=== PATIENT | male | born 1995 | race Caucasian/White ===

== ENCOUNTER 2016-06-29 18:48 | Emergency (ER) | payer BC, MEDICAID ==
[~2016-06-29] VITALS: Ht 177.8 cm; Wt 99.8 kg
[2016-06-29 20:53] LABS: BASOPHILS # (AUTO) 0.2 /CMM (0.0-0.2); BASOPHILS % (AUTO) 1.6 % (0.0-2.0); DIFF TOTAL % 100 %; EOSINOPHILS % (AUTO) 0.2 % (0.0-6.0); HEMATOCRIT 43 % (39-51); HEMOGLOBIN 14.1 g/dL (13.5-17.5); LYMPHOCYTES % (AUTO) 7.7 % (20.0-44.0); MEAN CORPUSCULAR HEMOGLOBIN 24 PG (26.0-33.0); MEAN CORPUSCULAR HGB CONC 33 g/dl (31.0-36.0); MEAN CORPUSCULAR VOLUME 73 fL (80-96); MONOCYTES # (AUTO) 0.7 /CMM (0.1-1.30); MONOCYTES % (AUTO) 5.1 % (2.0-12.0); NEUTROPHILS # (AUTO) 11.6 /CMM (1.8-8.9); NEUTROPHILS % (AUTO) 85.4 % (43.0-81.0); PLATELET COUNT (AUTO) 306 /CMM (150-450); RED BLOOD CELL COUNT(AUTO) 5.84 MIL/uL (4.5-6.0); WHITE BLOOD COUNT (AUTO) 13.5 K/uL (4.3-11.0)
[2016-06-29] MEDS ORDERED: IV NS 0.9% 1,000 ML BAG IV ONE (21:00)
[2016-06-29] MEDS ORDERED: KETOROLAC TROMETHAMINE INJ 30 MG/ML VIAL IV ONE (21:00)
[2016-06-29 21:06] LABS: KETONES,URINE Trace (NEGATIVE); LEUKOCYTE ESTERASE ,URINE Negative (NEGATIVE)
[2016-06-29 21:09] LABS: ALBUMIN 3.7 g/dL (3.4-5.0); BILIRUBIN,DIRECT 0.1 mg/dL (0.0-0.2); BILIRUBIN,TOTAL 0.5 mg/dL (0.2-1.0); CREATININE 1.1 mg/dL (0.6-1.3); INDIRECT BILIRUBIN 0.4 mg/dL (0.0-1.1); POTASSIUM 4.1 mmol/L (3.5-5.1); TOTAL PROTEIN, SERUM 7.4 g/dL (6.4-8.2)
[2016-06-29] MEDS ORDERED: IV SET PRIMARY 1 EA INFUS.SET MC ONE (21:11)
[2016-06-29] MEDS ORDERED: IV NS 0.9% 1,000 ML ONE (21:11)
[2016-06-29] MEDS ORDERED: KETOROLAC TROMETHAMINE INJ 30 MG/ML VIAL ONE (21:11)
[2016-06-29 21:19] LABS: ADD UA MICROSCOPIC YES
[2016-06-29 21:42] LABS: ADD URINE CULTURE NO; MUCUS,URINE Many /LPF (None Seen); RBC,URINE 2-3/HPF /HPF (0-2)
[2016-06-29 22:14] VITALS: BP 120/53
== END 2016-06-29 22:15 | disposition home or self-care (01) ==
LOC: ER 18:50
DX: R10.11 Right upper quadrant pain (principal); F17.200 Nicotine dependence, unspecified, uncomplicated
CPT/HCPCS: 36415; 74176; 80048; 80076; 81001; 83690; 85025; 96361; 96374; 99285; A4606; J1885; J7030; Z7610; 81000-TC

== ENCOUNTER 2021-05-19 21:05 | Emergency (ER) | payer SELFPAY ==
[~2021-05-19] VITALS: Ht 177.8 cm; Wt 95.3 kg
--- NOTE | 2021-05-19 21:30 | NUR ---
PT CAME IN C/O RIGHT SIDED CHEST PAIN AND VOMITING ,STARTED THIS MORNING PER PT. PT IS A/OX4.PT IS ON MONITOR.
[2021-05-19] MEDS ORDERED: ONDANSETRON HCL/PF 4 MG/2 ML VIAL ONE (22:21)
[2021-05-19] MEDS ORDERED: MORPHINE SULFATE INJ 2 MG/ML DISP.SYRIN ONE (22:21)
[2021-05-19] MEDS ORDERED: MORPHINE SULFATE INJ 2 MG/ML DISP.SYRIN IV ONE (22:30)
[2021-05-19] MEDS ORDERED: ONDANSETRON HCL/PF 4 MG/2 ML VIAL IVP ONE (22:30)
[2021-05-19] MEDS ORDERED: IV LR 1000 ML 1,000 ML IV ONE (22:30)
[2021-05-19 22:35] LABS: BILIRUBIN,URINE Negative (NEGATIVE); COLOR,URINE YELLOW (YELLOW); LEUKOCYTE ESTERASE ,URINE Negative (NEGATIVE); NITRITE, URINE Negative (NEGATIVE); PH,URINE 5.5 (5.0-8.0); PROTEIN,URINE Negative (NEGATIVE); UGLUCOSE Negative (NEGATIVE); UROBILINOGEN,URINE 0.2 EU/dL (0.2)
[2021-05-19] MEDS ORDERED: IOHEXOL-300 100 ML VIAL IV ONE (22:38)
[2021-05-19] MEDS ORDERED: CT SWABBABLE VALVE TRANS SET 1 EA INFUS.SET MC ONE (22:38)
[2021-05-19] MEDS ORDERED: IV NS 0.9% 250 ML IV ONE (22:38)
[2021-05-19 22:40] LABS: BACTERIA,URINE Rare /HPF (None Seen); SQUAMOUS EPITHELIAL CELL,UR Few /HPF (None Seen); WBC,URINE NONE SEEN /HPF (0-3)
[2021-05-19 22:49] LABS: BASOPHILS % (AUTO) 0.3 % (0.0-2.0); EOSINOPHILS % (AUTO) 0.5 % (0.0-6.0); HEMATOCRIT 42 % (39-51); HEMOGLOBIN 13.8 g/dL (13.5-17.5); LYMPHOCYTES # (AUTO) 1.3 K/uL (0.8-4.8); LYMPHOCYTES % (AUTO) 8.5 % (20.0-44.0); MEAN CORPUSCULAR HGB CONC 32 g/dl (31.0-36.0); MEAN CORPUSCULAR VOLUME 74 fL (80-96); MONOCYTES # (AUTO) 0.8 K/uL (0.1-1.30); MONOCYTES % (AUTO) 5.1 % (2.0-12.0); NEUTROPHILS # (AUTO) 12.6 K/uL (1.8-8.9); NEUTROPHILS % (AUTO) 85.6 % (43.0-81.0); PLATELET COUNT (AUTO) 379 K/uL (150-450); RED BLOOD CELL COUNT(AUTO) 5.72 MIL/uL (4.5-6.0); WHITE BLOOD COUNT (AUTO) 14.7 K/uL (4.3-11.0)
[2021-05-19 23:20] LABS: ALANINE AMINOTRANSFERASE 15 U/L (12-78); ALBUMIN 3.5 g/dL (3.4-5.0); ALKALINE PHOSPHATASE 76 U/L (46-116); ASPARTATE AMINOTRANSFERASE 12 U/L (15-37); BILIRUBIN,DIRECT 0.1 mg/dL (0.0-0.2); BILIRUBIN,TOTAL 0.3 mg/dL (0.2-1.0); CALCIUM, SERUM 8.8 mg/dL (8.5-10.1); CARBON DIOXIDE 29 mmol/L (21-32); CHLORIDE 100 mmol/L (98-107); GLUCOSE 105 mg/dL (74-106); POTASSIUM 3.8 mmol/L (3.5-5.1); SODIUM SERUM 141 mmol/L (136-145); TOTAL PROTEIN, SERUM 7.5 g/dL (6.4-8.2); UREA NITROGEN, BLOOD 11 mg/dL (7-18)
[2021-05-20] MEDS ORDERED: ONDA4TAB5 PO (00:36)
--- NOTE | 2021-05-20 00:45 | NUR ---
Patient discharged to home in stable condition.RX, Written and verbal after care instructions given. Patient verbalizes understanding of instruction.IV removed. Catheter intact and site benign. Pressure and 4x4 applied to site. No bleeding noted.
[2021-05-20 00:46] VITALS: BP 119/86
== END 2021-05-20 00:47 | disposition home or self-care (01) ==
LOC: ER 21:07
DX: R10.11 Right upper quadrant pain (principal); R11.2 Nausea with vomiting, unspecified; F17.290 Nicotine dependence, other tobacco product, uncomplicated; Z79.899 Other long term (current) drug therapy
CPT/HCPCS: 36415; 71045; 74160; 76705; 80048; 80076; 81001; 83605; 83690; 84484; 85025; 87040 ×2; 93005; 96361; 96374; 96375; 99285; J2270; J2405; J7050; J7120; Q9967

== ENCOUNTER 2022-12-15 10:22 | Inpatient (IN) | payer MEDICAID ==
[~2022-12-15] VITALS: Ht 177.8 cm; Wt 99.8 kg
[~2022-12-15 10:22] MED LIST: ONDA4TAB5 PO
[2022-12-15 11:25] LABS: BASOPHILS % (AUTO) 0.4 % (0.0-2.0); EOSINOPHILS % (AUTO) 2.3 % (0.0-6.0); HEMATOCRIT 41 % (39-51); HEMOGLOBIN 13.2 g/dL (13.5-17.5); MEAN CORPUSCULAR HGB CONC 32 g/dl (31.0-36.0); MEAN CORPUSCULAR VOLUME 72 fL (80-96); MONOCYTES # (AUTO) 0.6 K/uL (0.1-1.30); MONOCYTES % (AUTO) 6.7 % (2.0-12.0); NEUTROPHILS # (AUTO) 6.5 K/uL (1.8-8.9); NEUTROPHILS % (AUTO) 69.6 % (43.0-81.0); PLATELET COUNT (AUTO) 375 K/uL (150-450); RED BLOOD CELL COUNT(AUTO) 5.74 MIL/uL (4.5-6.0); WHITE BLOOD COUNT (AUTO) 9.3 K/uL (4.3-11.0)
[2022-12-15 11:31] LABS: CALCIUM, SERUM 9.2 mg/dL (8.5-10.1); CREATININE 0.8 mg/dL (0.6-1.3); POTASSIUM 4.2 mmol/L (3.5-5.1)
[2022-12-15] MEDS ORDERED: IV NS 0.9% 250 ML IV ONE (12:53)
[2022-12-15] MEDS ORDERED: IOHEXOL-300 100 ML VIAL IV ONE (12:53)
[2022-12-15] MEDS ORDERED: HYDROCODONE/APAP 5/325MG TABLET PO PRN (16:30)
[2022-12-15] MEDS: SULFAMETHOXAZOLE/TRIMETHOPRIM 10 ML in IV D5W 250 ML IV SCH (18:00)
[2022-12-15 20:00] VITALS: BP 117/66; TEMP 98.4; O2SAT 97
[2022-12-15] MEDS ORDERED: ENOXAPARIN SODIUM 40 MG/0.4 ML DISP.SYRIN SQ SCH (21:00)
[2022-12-15] MEDS: TRAZODONE 50 MG TABLET PO PRN (22:34)
[2022-12-16] MEDS: SULFAMETHOXAZOLE/TRIMETHOPRIM 10 ML in IV D5W 250 ML IV SCH ×3 (01:41→17:03)
[2022-12-16 04:00] VITALS: BP 120/70; TEMP 98; O2SAT 96
[2022-12-16 06:17] LABS: BASOPHILS % (AUTO) 0.5 % (0.0-2.0); EOSINOPHILS % (AUTO) 2.9 % (0.0-6.0); HEMATOCRIT 40 % (39-51); HEMOGLOBIN 13.1 g/dL (13.5-17.5); LYMPHOCYTES # (AUTO) 2.3 K/uL (0.8-4.8); LYMPHOCYTES % (AUTO) 24.9 % (20.0-44.0); MEAN CORPUSCULAR HGB CONC 33 g/dl (31.0-36.0); MEAN CORPUSCULAR VOLUME 71 fL (80-96); MONOCYTES # (AUTO) 0.7 K/uL (0.1-1.30); MONOCYTES % (AUTO) 7.1 % (2.0-12.0); NEUTROPHILS # (AUTO) 5.9 K/uL (1.8-8.9); NEUTROPHILS % (AUTO) 64.6 % (43.0-81.0); PLATELET COUNT (AUTO) 382 K/uL (150-450); RED BLOOD CELL COUNT(AUTO) 5.58 MIL/uL (4.5-6.0); WHITE BLOOD COUNT (AUTO) 9.2 K/uL (4.3-11.0)
[2022-12-16 06:28] LABS: CALCIUM, SERUM 9.1 mg/dL (8.5-10.1); MAGNESIUM 2.3 mg/dL (1.8-2.4); PHOSPHORUS 4.7 mg/dL (2.5-4.9); POTASSIUM 4.2 mmol/L (3.5-5.1)
[2022-12-16 08:00] VITALS: BP 121/64; TEMP 98.3; O2SAT 95
[2022-12-16 16:00] VITALS: BP 108/61; TEMP 98.2; O2SAT 97
[2022-12-16 20:00] VITALS: BP 113/71; TEMP 98.2; O2SAT 97
[2022-12-16] MEDS: TRAZODONE 50 MG TABLET PO PRN (23:15)
[2022-12-17] MEDS: SULFAMETHOXAZOLE/TRIMETHOPRIM 10 ML in IV D5W 250 ML IV SCH ×3 (01:02→18:21)
[2022-12-17 04:00] VITALS: BP 113/71; TEMP 98.2; O2SAT 97
[2022-12-17 08:00] VITALS: BP 118/69; TEMP 98.7; O2SAT 97
[2022-12-17 08:08] LABS: BASOPHILS # (AUTO) 0.1 K/uL (0.0-0.2); BASOPHILS % (AUTO) 0.6 % (0.0-2.0); EOSINOPHILS % (AUTO) 2.5 % (0.0-6.0); HEMATOCRIT 42 % (39-51); HEMOGLOBIN 13.7 g/dL (13.5-17.5); LYMPHOCYTES # (AUTO) 1.9 K/uL (0.8-4.8); LYMPHOCYTES % (AUTO) 19.4 % (20.0-44.0); MEAN CORPUSCULAR HGB CONC 32 g/dl (31.0-36.0); MEAN CORPUSCULAR VOLUME 72 fL (80-96); MONOCYTES # (AUTO) 0.6 K/uL (0.1-1.30); MONOCYTES % (AUTO) 6.5 % (2.0-12.0); PLATELET COUNT (AUTO) 417 K/uL (150-450); RED BLOOD CELL COUNT(AUTO) 5.92 MIL/uL (4.5-6.0); WHITE BLOOD COUNT (AUTO) 9.9 K/uL (4.3-11.0)
[2022-12-17 08:27] LABS: CALCIUM, SERUM 9.2 mg/dL (8.5-10.1); POTASSIUM 4.4 mmol/L (3.5-5.1)
[2022-12-17] MEDS ORDERED: FENTANYL PF 100MCG/2ML AMPUL ONE ×2 (08:56)
[2022-12-17] MEDS ORDERED: FAMOTIDINE/PF INJ 20 MG/2 ML VIAL IV ONE (08:58)
[2022-12-17] MEDS ORDERED: HYDROMORPHONE INJ 2 MG/ML DISP.SYRIN ONE (08:58)
[2022-12-17] MEDS ORDERED: MIDAZOLAM HCL 2 MG/2ML VIAL ONE (08:58)
[2022-12-17] MEDS ORDERED: SUCCINYLCHOLINE CHLORIDE 20 MG/ML VIAL ONE (08:59)
[2022-12-17] MEDS ORDERED: LIDOCAINE 1% INJ 50 ML MDV IJ ONE (09:40)
[2022-12-17] MEDS ORDERED: BUPIVACAINE MPF W/EPI 0.25% 30 ML VIAL ONE (09:40)
[2022-12-17] MEDS ORDERED: PHYTONADIONE INJ 10 MG/1 ML AMPUL ONE (09:51)
[2022-12-17] MEDS: ONDANSETRON HCL/PF 4 MG/2 ML VIAL IVP PRN ×2 (11:44→12:18)
[2022-12-17] MEDS: IV LR 1000 ML 1,000 ML IV PRN (11:56)
[2022-12-17] MEDS: CELECOXIB 100 MG CAPSULE PO SCH (13:23)
[2022-12-17] MEDS: GABAPENTIN 300 MG CAPSULE PO SCH ×2 (13:23→21:54)
[2022-12-17 16:00] VITALS: BP 115/70; TEMP 98.5; O2SAT 97
[2022-12-17 20:00] VITALS: BP 99/61; TEMP 98.6; O2SAT 100
[2022-12-18] MEDS: TRAZODONE 50 MG TABLET PO PRN
[2022-12-18] MEDS: IV LR 1000 ML 1,000 ML IV PRN (00:10)
[2022-12-18] MEDS: CELECOXIB 100 MG CAPSULE PO SCH ×2 (01:24→13:19)
[2022-12-18] MEDS: SULFAMETHOXAZOLE/TRIMETHOPRIM 10 ML in IV D5W 250 ML IV SCH ×3 (02:31→10:07)
[2022-12-18 04:00] VITALS: BP 102/60; TEMP 98; O2SAT 100
[2022-12-18] MEDS: GABAPENTIN 300 MG CAPSULE PO SCH ×3 (05:44→20:04)
[2022-12-18 08:00] VITALS: BP 111/68; TEMP 98.3; O2SAT 100
[2022-12-18] MEDS: ONDANSETRON HCL/PF 4 MG/2 ML VIAL IVP PRN (10:08)
[2022-12-18 11:00] VITALS: BP 114/66; TEMP 100
[2022-12-18] MEDS: PIPERACILLIN /TAZOBACTAM 3.375 G in IV D5W 50 ML IV SCH ×2 (12:19→18:12)
[2022-12-18] MEDS: ACETAMINOPHEN 325 MG TABLET PO PRN ×2 (12:25→18:39)
[2022-12-18] MEDS ORDERED: IBUPROFEN 600 MG TABLET PO PRN (15:30)
[2022-12-18] MEDS: IV NS 0.9% 1,000 ML IV PRN (15:48)
[2022-12-18 16:03] VITALS: BP 104/43; TEMP 102.9
[2022-12-18 20:00] VITALS: BP 103/50; TEMP 98.1; O2SAT 97
[2022-12-18] MEDS: MORPHINE SULFATE INJ 2 MG/ML DISP.SYRIN IV PRN (20:02)
[2022-12-19] MEDS: CELECOXIB 100 MG CAPSULE PO SCH ×2 (00:01→12:33)
[2022-12-19] MEDS: PIPERACILLIN /TAZOBACTAM 3.375 G in IV D5W 50 ML IV SCH ×4 (00:03→17:04)
[2022-12-19] MEDS: IV NS 0.9% 1,000 ML IV PRN (00:14)
[2022-12-19 04:00] VITALS: BP 97/59; TEMP 98.5; O2SAT 96
[2022-12-19] MEDS: GABAPENTIN 300 MG CAPSULE PO SCH ×3 (05:11→22:28)
[2022-12-19 07:40] LABS: BASOPHILS % (AUTO) 0.5 % (0.0-2.0); EOSINOPHILS % (AUTO) 2.4 % (0.0-6.0); HEMATOCRIT 38 % (39-51); HEMOGLOBIN 12.1 g/dL (13.5-17.5); LYMPHOCYTES # (AUTO) 1.4 K/uL (0.8-4.8); LYMPHOCYTES % (AUTO) 18.1 % (20.0-44.0); MEAN CORPUSCULAR HGB CONC 32 g/dl (31.0-36.0); MEAN CORPUSCULAR VOLUME 72 fL (80-96); MONOCYTES # (AUTO) 0.8 K/uL (0.1-1.30); MONOCYTES % (AUTO) 10.7 % (2.0-12.0); NEUTROPHILS # (AUTO) 5.3 K/uL (1.8-8.9); NEUTROPHILS % (AUTO) 68.3 % (43.0-81.0); PLATELET COUNT (AUTO) 296 K/uL (150-450); RED BLOOD CELL COUNT(AUTO) 5.29 MIL/uL (4.5-6.0); WHITE BLOOD COUNT (AUTO) 7.7 K/uL (4.3-11.0)
[2022-12-19 07:44] LABS: CALCIUM, SERUM 8.6 mg/dL (8.5-10.1); CREATININE 0.9 mg/dL (0.6-1.3); MAGNESIUM 2.2 mg/dL (1.8-2.4); PHOSPHORUS 3.1 mg/dL (2.5-4.9); POTASSIUM 4.4 mmol/L (3.5-5.1)
[2022-12-19 08:00] VITALS: BP 100/51; TEMP 97.7; O2SAT 99
[2022-12-19] MEDS: MORPHINE SULFATE INJ 2 MG/ML DISP.SYRIN IV PRN ×2 (08:41→23:12)
[2022-12-19 16:00] VITALS: BP 108/68; TEMP 98.7; O2SAT 99
[2022-12-19] MEDS ORDERED: CALCIUM CARBONATE 500 MG TAB.CHEW PO PRN (18:30)
[2022-12-19] MEDS: PANTOPRAZOLE 40 MG TABLET.DR PO SCH (18:35)
[2022-12-19 20:00] VITALS: BP 115/67; TEMP 99.1; O2SAT 100
[2022-12-20] MEDS: CELECOXIB 100 MG CAPSULE PO SCH (00:24)
[2022-12-20] MEDS: PIPERACILLIN /TAZOBACTAM 3.375 G in IV D5W 50 ML IV SCH ×2 (00:24→05:35)
[2022-12-20 04:00] VITALS: BP 121/70; TEMP 98.1; O2SAT 100
[2022-12-20] MEDS: GABAPENTIN 300 MG CAPSULE PO SCH (05:34)
[2022-12-20 06:56] LABS: BASOPHILS % (AUTO) 0.6 % (0.0-2.0); EOSINOPHILS % (AUTO) 5.5 % (0.0-6.0); HEMATOCRIT 39 % (39-51); HEMOGLOBIN 12.5 g/dL (13.5-17.5); LYMPHOCYTES % (AUTO) 29.7 % (20.0-44.0); MEAN CORPUSCULAR HGB CONC 32 g/dl (31.0-36.0); MEAN CORPUSCULAR VOLUME 72 fL (80-96); MONOCYTES # (AUTO) 0.6 K/uL (0.1-1.30); MONOCYTES % (AUTO) 8.7 % (2.0-12.0); NEUTROPHILS # (AUTO) 3.7 K/uL (1.8-8.9); NEUTROPHILS % (AUTO) 55.5 % (43.0-81.0); PLATELET COUNT (AUTO) 323 K/uL (150-450); RED BLOOD CELL COUNT(AUTO) 5.47 MIL/uL (4.5-6.0); WHITE BLOOD COUNT (AUTO) 6.6 K/uL (4.3-11.0)
[2022-12-20 07:32] LABS: CALCIUM, SERUM 9.2 mg/dL (8.5-10.1); CREATININE 0.9 mg/dL (0.6-1.3); MAGNESIUM 2.3 mg/dL (1.8-2.4); PHOSPHORUS 4.7 mg/dL (2.5-4.9); POTASSIUM 4.1 mmol/L (3.5-5.1)
[2022-12-20 08:00] VITALS: BP 106/69; TEMP 97.8; O2SAT 100
[2022-12-20] MEDS: PANTOPRAZOLE 40 MG TABLET.DR PO SCH (08:09)
[2022-12-20] MEDS ORDERED: AMOX-430 PO (10:31)
[2022-12-20] MEDS ORDERED: GABA300C PO (10:31)
[2022-12-20] MEDS ORDERED: HYDR-4303 PO (10:31)
[2022-12-20] MEDS ORDERED: CELE100C PO (10:31)
[2022-12-21] MEDS ORDERED: HYDR-4303 PO (13:37)
[2022-12-21] MEDS ORDERED: HYDR-3972 PO (23:38)
== END 2022-12-20 13:00 | disposition home or self-care (01) | DRG 383 ==
LOC: ER 10:24 → MEDSG1 16:37
PROVIDERS: ADMIT Nurse Practitioner Acute Care; ATTEND Nurse Practitioner Acute Care
PROC: 0JBB0ZZ Excision of Perineum Subcutaneous Tissue and Fascia, Open Approach (ICD-10-PCS; principal; 2022-12-17)
PROC: 0JB70ZZ Excision of Back Subcutaneous Tissue and Fascia, Open Approach (ICD-10-PCS; 2022-12-17)
DX: L05.01 Pilonidal cyst with abscess (principal); D68.69 Other thrombophilia; L02.215 Cutaneous abscess of perineum; K61.0 Anal abscess; E66.01 Morbid (severe) obesity due to excess calories; Z68.31 Body mass index [BMI] 31.0-31.9, adult; F17.210 Nicotine dependence, cigarettes, uncomplicated
CPT/HCPCS: 36415; 71045-TC; 72193-TC; 80048-TC; 80061-TC; 82962-TC; 83735-TC; 84100-TC; 85025-TC; 85730-TC; 87040-TC; 88305-TC; 88312-TC; A4217; A4223; A6253; A6403; G0378; J0330; J0690; J1170; J1650; J2250; J2270; J2405; J2543; J2704; J2765; J3010; J3430; J3490; J7030; J7050; J7060; J7120; Q9967

== ENCOUNTER 2023-03-19 11:49 | Emergency (ER) | payer MEDICAID, OTHER ==
[~2023-03-19] VITALS: Ht 177.8 cm; Wt 99.8 kg
[~2023-03-19 11:49] MED LIST changes: +AMOX-430 PO; +CELE100C PO; +GABA300C PO; +HYDR-3972 PO; -ONDA4TAB5 PO
[2023-03-19 12:15] LABS: BASOPHILS % (AUTO) 0.3 % (0.0-2.0); EOSINOPHILS # (AUTO) 0.1 K/uL (0.0-0.7); HEMATOCRIT 43 % (39-51); HEMOGLOBIN 14.1 g/dL (13.5-17.5); LYMPHOCYTES % (AUTO) 20.3 % (20.0-44.0); MEAN CORPUSCULAR HEMOGLOBIN 24 PG (26.0-33.0); MEAN CORPUSCULAR HGB CONC 33 g/dl (31.0-36.0); MEAN CORPUSCULAR VOLUME 72 fL (80-96); MONOCYTES # (AUTO) 0.8 K/uL (0.1-1.30); MONOCYTES % (AUTO) 8.4 % (2.0-12.0); NEUTROPHILS # (AUTO) 6.8 K/uL (1.8-8.9); PLATELET COUNT (AUTO) 315 K/uL (150-450); RED CELL DISTRIBUTION WIDTH 17.4 % (11.5-15.0); WHITE BLOOD COUNT (AUTO) 9.8 K/uL (4.3-11.0)
[2023-03-19 12:30] LABS: CALCIUM, SERUM 9.6 mg/dL (8.5-10.1); CARBON DIOXIDE 28 mmol/L (21-32); CHLORIDE 100 mmol/L (98-107); GLUCOSE 93 mg/dL (74-106); POTASSIUM 4.1 mmol/L (3.5-5.1); SODIUM SERUM 136 mmol/L (136-145); UREA NITROGEN, BLOOD 9 mg/dL (7-18)
[2023-03-19 14:24] VITALS: BP 116/70; TEMP 98.1; O2SAT 100
== END 2023-03-19 14:25 | disposition home or self-care (01) ==
LOC: ER 11:58
DX: R07.89 Other chest pain (principal)
CPT/HCPCS: 36415; 71045-TC; 80048-TC; 84484-TC; 85025-TC

== ENCOUNTER 2023-10-19 09:56 | Emergency (ER) | payer OTHER ==
[~2023-10-19] VITALS: Ht 177.8 cm; Wt 104.3 kg
[2023-10-19] MEDS ORDERED: DOXYCYCLINE HYCLATE (100 MG) 100 MG TABLET ONE (10:23)
[2023-10-19] MEDS ORDERED: DOXY100C2 PO (10:26)
[2023-10-19] MEDS: DOXYCYCLINE HYCLATE (100 MG) 100 MG TABLET PO ONE (10:26)
[2023-10-19 11:50] VITALS: BP 118/73; TEMP 98.1; O2SAT 97
== END 2023-10-19 11:51 | disposition home or self-care (01) ==
LOC: ER 10:01
DX: L03.314 Cellulitis of groin (principal); F17.200 Nicotine dependence, unspecified, uncomplicated